=== PATIENT | male | born 2005 | race Caucasian/White ===

== ENCOUNTER 2023-02-03 08:11 | Outpatient (OUT) | payer SELFPAY ==
--- NOTE | 2023-02-03 08:28 | XR_ITS ---
[facility] [id number] Patient Name: HECTOR ESCOBAR MRN: [id number] date: 2005 Sex: M Assigned Patient Location: RAD Current Patient Location: RAD Accession/Order Number: [id number] Exam Date: 02/03/2023 08:20 Report Date: 02/03/2023 08:55 At the request of: FLASH GONGORA Procedure: XR wrist RT min 3V PROCEDURE: XR wrist RT min 3V HISTORY: S52.691D, S52.551D COMPARISON: None. FINDINGS: BONES:Transverse fracture through distal radial metaphysis with increased sclerosis and mild callus formation along posterior margin. Minimal dorsal angulation of distal articular surface. Nondisplaced fracture through base of ulnar styloid process without appreciable callus formation. SOFT TISSUES:Mild soft tissue swelling surrounding the wrist. EFFUSION:None visible. OTHER: Negative. XR/XR wrist RT min 3V IMPRESSION: 1. Relatively normal alignment of the distal radius transverse fracture with early bone healing. 2. Normal alignment of distal ulnar styloid process fracture, with likely early bone healing. Electronically authenticated by: FLASH LUCIO Date: 02/03/2023 08:55
== END 2023-02-03 08:12 | disposition home or self-care (01) ==
LOC: RAD 08:12
PROVIDERS: Visit Provider Orthopaedic Surgery
DX: S52.691D Other fracture of lower end of right ulna, subsequent encounter for closed fracture with routine healing (principal); S52.551D Other extraarticular fracture of lower end of right radius, subsequent encounter for closed fracture with routine healing
CPT/HCPCS: 73110